=== PATIENT | male | born 1955 ===

== ENCOUNTER 2017-10-04 08:09 | Day surgery (SDC) | payer MEDICAID ==
[2017-09-28 08:37] VITALS: BMI 25.4
[~2017-10-04 08:09] MED LIST: Gentamicin 160 MG in Sodium Chloride 0.9% 100 ML IVPB ONE
[2017-10-04] MEDS ORDERED: Lidocaine 2% Jelly (Uro-Jet) ONE ×2 (08:38→10:05)
[2017-10-04] MEDS ORDERED: cefTRIAXone IV 1 gm in Dextros 50 ML IVPB ONE (08:38)
[2017-10-04] MEDS ORDERED: Midazolam 2 MG/2 ML VIAL ONE (09:57)
[2017-10-04] MEDS ORDERED: Propofol 10 mg/ml Inj (20 ML) ONE (09:57)
[2017-10-04] MEDS ORDERED: Lactated Ringer's 1,000 ML IV ONE (10:35)
[2017-10-04 12:39] VITALS: RESP 18; O2SAT 99
[2017-10-04 12:46] VITALS: BP 96/64; PULSE 62; TEMP 98
--- NOTE | 2017-10-05 08:19 | OP ---
PROCEDURE DATE: 10/04/2017 PREOPERATIVE DIAGNOSIS: Elevated prostate-specific antigen of 5.1. POSTOPERATIVE DIAGNOSIS: Elevated prostate-specific antigen of 5.1. PROCEDURE: Transrectal ultrasound diagnostic, transrectal ultrasound guidance and prostatic biopsy. SURGEON: Emigdio Angel MD DESCRIPTION OF PROCEDURE: The patient was explained via an deaf interpreter in the holding area that in case if he has any postoperative shakes or fever, he is to call me right away or go right to the emergency room. He also confirmed he has not been taking any aspirin or NSAIDs for over 10 days. He was placed in lithotomy position, prepped and draped in the usual fashion and under anesthesia, his rectum was cleansed with Betadine and he was given IV Rocephin 1 g and gentamicin 160 mg. The transducer was placed in the rectum and examination of the prostate revealed few areas of calcification in the posterior left lobe. The total volume is 37 cm. We now turned our attention to biopsies and using the transducer, we divided the prostate into 6 sextants and submitted 2 cores per sextant for a total of 12 biopsies. We then maintained the probe in place for 5 minutes to induce hemostasis and upon removal, no bleeding was noted. The patient tolerated the procedure well. Emigdio Angel MD
== END 2017-10-04 12:35 | disposition home or self-care (01) ==
LOC: C.SDS 08:09
PROVIDERS: ATTEND Urology
DX: C61 Malignant neoplasm of prostate (principal); N40.0 Benign prostatic hyperplasia without lower urinary tract symptoms
CPT/HCPCS: 55700; 76872; 88305; 88342; J0696; J1580; J7120